=== PATIENT | male | born 1995 | race Caucasian/White ===

== ENCOUNTER 2016-05-28 15:53 | Emergency (ER) | payer MEDICAID, OTHER ==
[~2016-05-28] VITALS: Ht 167.6 cm; Wt 72.0 kg
[2016-05-28 16:12] VITALS: Ht 167.6 cm; Wt 72.0 kg
[2016-05-28] MEDS ORDERED: DIPHTH/TET/ACEL PERTUSS (ADULT) 0.5 ML VIAL IM* ONE (18:00)
--- NOTE | 2016-05-28 18:10 | RADRPT ---
PROCEDURE: XR Foot. CLINICAL INDICATION: Trauma with left great toe laceration. TECHNIQUE: Three views of the left foot are available for review. COMPARISON: None available FINDINGS: There is a comminuted and displaced fracture of the distal first phalanx that extends to the IP join t. There is extensive edema within the first digit and midfoot. There is a tiny osseous fragment a djacent to the medial aspect of the second distal phalanx, likely related to a mildly displaced frac ture. The osseous mineralization is within normal limits. The osseous mineralization is within prince l limits. IMPRESSION: 1. Comminuted and displaced fracture of the distal first phalanx that extends to the IP joint. 2. Likely a mildly displaced fracture arising from the medial base of the distal second phalanx. 3. Extensive edema surrounding the first digit and midfoot. RPTAT: HLBP .Barry Batista MD, Date Time Electronically viewed and signed by .Barry Batista MD, MD on 05/28/2016 18:10 .P/
--- NOTE | 2016-05-28 18:12 | RADRPT ---
PROCEDURE: XR Ankle. CLINICAL INDICATION: Trauma with pain. TECHNIQUE: 4 views of the left ankle were performed. COMPARISON: None available. FINDINGS: A comminuted and displaced fracture of the distal first phalanx is again seen on the AP view. There is no additional acute fracture, dislocation, or other osteoarticular abnormality. The alignment i s normal and the ankle mortise is intact. There is mild edema within the soft tissues adjacent to t he lateral malleolus. No radiopaque foreign body is identified. IMPRESSION: 1. Edema within the soft tissues overlying the lateral malleolus with no underlying acute fracture or dislocation involving the ankle joint. 2. Partially visualized comminuted and displaced fracture of the distal first phalanx. RPTAT: HLBP .Barry Batista MD, Date Time Electronically viewed and signed by .Barry Batista MD, MD on 05/28/2016 18:11 .P/
[2016-05-28] MEDS ORDERED: CEPH-443 PO (18:26)
[2016-05-28] MEDS ORDERED: IBUP-1542 PO (18:26)
[2016-05-28] MEDS ORDERED: BACTDS PO (18:26)
[2016-05-28] MEDS ORDERED: CEFAZOLIN 1 GM INJ IM ONE (18:30)
[2016-05-28 18:46] VITALS: BP 130/75; PULSE 104; RESP 20; TEMP 97.8
--- NOTE | 2016-05-28 19:08 | ERD ---
ER Documentation Chief Complaint Date/Time DATE: 05/28/16 TIME: 19:03 Chief Complaint LAC to L toe nail and swelling after corner of soda machine fell on it. HPI 21-year-old male with no significant past medical history presents the ED with a left foot injury he sustained yesterday. States that he was trying to help his friend move a soda machine and accidentally crushed his left foot. Reports that it was initially painful but denies any current pain. Rates the pain a 2 out of 10. States that he did not come in yesterday because he does not like coming to the hospital. States that he has a laceration to his left great toe. States that he is limping and does not want to put weight on his left foot. Denies any loss of sensation, fever, chills, weakness, numbness or tingling. ROS All systems reviewed and are negative except as per history of present illness. Medications Home Meds Active Scripts Ibuprofen* (Motrin*) 600 Mg Tab, 600 MG PO Q6, #30 TAB Prov:ZAY BENITEZ PA-C 05/28/16 Cephalexin* (Keflex*) 500 Mg Capsule, 500 MG PO QID for 7 Days, CAP Prov:ZAY BENITEZ PA-C 05/28/16 Sulfamethoxazole-Trimethoprim* (Bactrim* DS) 800-160 Mg Tab, 1 TAB PO BID for 7 Days, TAB Prov:ZAY BENITEZ PA-C 05/28/16 PMhx/Soc Medical and Surgical Hx: pt denies Medical Hx, pt denies Surgical Hx Hx Alcohol Use: No Hx Substance Use: No Physical Exam Vitals Vital Signs Date Time Temp Pulse Resp B/P Pulse Ox O2 Delivery O2 Flow Rate FiO2 05/28/16 18:46 97.8 104 20 130/75 99 Room Air 05/28/16 16:12 97.8 107 20 141/79 98 Physical Exam Const: [id number], well-nourished. In no acute distress. Head: Atraumatic, normocephalic Eyes: Normal Conjunctiva without injection ENT: Normal external ear, nose and mouth. Neck: Full range of motion. No meningismus. Resp: Clear to auscultation bilaterally. No wheezing, rhonchi, rales, or crackles. No accessory muscle use. No retractions. Cardio: Regular rate and rhythm, no murmurs Skin: No petechiae or rashes Back: No midline tenderness. No CVA tenderness. Ext: No cyanosis, or edema. Horizontal 3 cm laceration noted at the base of left great toe nail with surrounding ecchymosis. Limited range of motion of the IP, MCP joints of the left foot. Edema noted over the dorsal aspect of patient's left foot with slight erythema. Cap refill less than 2 seconds. Distal pulses intact bilaterally. Neur: Awake and alert. Normal gait and coordination. Muscle strength 5/5. Sensation intact bilaterally. Psych: Normal Mood and Affect Results 24 hrs Current Medications Medications (Trade) Dose Ordered Sig/Katie Route PRN Reason Start Time Stop Time Status Last Admin Dose Admin Diphtheria/ Tetanus/Acell Pertussis (Adacel) 0.5 ml ONCE ONCE IM* 05/28/16 18:00 05/28/16 18:01 DC 05/28/16 18:35 Cefazolin Sodium (Ancef) 1 gm ONCE ONCE IM 05/28/16 18:30 05/28/16 18:31 DC 05/28/16 18:34 Procedures/MDM This is a 21-year-old male with no significant past medical history presents to ED with a left foot injury. Patient is afebrile and nontoxic-appearing. Patient denied wanting any pain medications. A left foot and left ankle x-ray was ordered to further evaluate patient. PROCEDURE: XR Ankle. CLINICAL INDICATION: Trauma with pain. TECHNIQUE: 4 views of the left ankle were performed. COMPARISON: None available. FINDINGS: A comminuted and displaced fracture of the distal first phalanx is again seen on the AP view. There is no additional acute fracture, dislocation, or other osteoarticular abnormality. The alignment is normal and the ankle mortise is intact. There is mild edema within the soft tissues adjacent to the lateral malleolus. No radiopaque foreign body is identified. IMPRESSION: 1. Edema within the soft tissues overlying the lateral malleolus with no underlying acute fracture or dislocation involving the ankle joint. 2. Partially visualized comminuted and displaced fracture of the distal first phalanx. PROCEDURE: XR Foot. CLINICAL INDICATION: Trauma with left great toe laceration. TECHNIQUE: Three views of the left foot are available for review. COMPARISON: None available FINDINGS: There is a comminuted and displaced fracture of the distal first phalanx that extends to the IP joint. There is extensive edema within the first digit and midfoot. There is a tiny osseous fragment adjacent to the medial aspect of the second distal phalanx, likely related to a mildly displaced fracture. The osseous mineralization is within normal limits. The osseous mineralization is within normal limits. IMPRESSION: 1. Comminuted and displaced fracture of the distal first phalanx that extends to the IP joint. 2. Likely a mildly displaced fracture arising from the medial base of the distal second phalanx. 3. Extensive edema surrounding the first digit and midfoot. Patient is placed in a left great toe metal splint with mindy tape to left 2nd toe with a posterior ankle splint. Splint Assessment: Neurovascularly intact pre and post splint placement with good fit. Patient sustained a comminuted and displaced fracture of the distal first phalanx extends the IP joint as well as a mildly displaced fracture arising at the medial base of the distal second phalanx. This is likely a open fracture and patient will be treated with Tdap and Ancef 1 g here in the ED. This case was discussed with my supervising physician, Dr. Gu who also evaluated patient at this time. Since patient's laceration has been more than 24 hours, there is no indication for sutures at this time as the risks of infection outweigh the benefits. Stated that patient can be managed on an outpatient basis with orthopedic physician. The laceration will heal through secondary intention. Nail is likely going to fall off. Patient's extremity symptoms have stabilized while they have been evaluated in the department and are appropriate for outpatient follow up. No evidence of dislocations, compartment syndrome, neurologic injury, vascular injury, open joint, open fracture, tendon laceration , septic arthritis, osteomyelitis, DVT, foreign body, or other emergent conditions. Discharge medications: Ibuprofen, Keflex, Bactrim Follow up with orthopedic physician in 1-2 days. Instructed patient to return to the ED sooner for any worsening symptoms. Patient's questions were answered. Patient understood and agreed with discharge plan. Patient discharged stable. Departure Diagnosis: Primary Impression: Toe fracture, left Encounter type: initial encounter Toe: great toe Fracture type: open Phalanx: proximal Fracture alignment: nondisplaced Qualified Code: S92.415B - Open nondisplaced fracture of proximal phalanx of left great toe, initial encounter Condition: Stable Patient Instructions: Finger and Toe Fractures (Broken Finger or Toe) Referrals: [facility], [facility] YOU HAVE RECEIVED A MEDICAL SCREENING EXAM AND THE RESULTS INDICATE THAT YOU DO NOT HAVE A CONDITION THAT REQUIRES URGENT TREATMENT IN THE EMERGENCY DEPARTMENT. FURTHER EVALUATION AND TREATMENT OF YOUR CONDITION CAN WAIT UNTIL YOU ARE SEEN IN YOUR DOCTORS OFFICE WITHIN THE NEXT 1-2 DAYS. IT IS YOUR RESPONSIBILITY TO MAKE AN APPOINTMENT FOR FOLOW-UP CARE. IF YOU HAVE A PRIMARY DOCTOR --you should call your primary doctor and schedule an appointment IF YOU DO NOT HAVE A PRIMARY DOCTOR YOU CAN CALL OUR PHYSICIAN REFERRAL HOTLINE AT IF YOU CAN NOT AFFORD TO SEE A PHYSICIAN YOU CAN CHOSE FROM THE FOLLOWING [facility] [address] [facility]. [facility] [address] [facility] [facility] [address] [facility] [facility] [address] [facility] [address] [facility]. [facility] [address] [facility]. [facility] YOU HAVE RECEIVED A MEDICAL SCREENING EXAM AND THE RESULTS INDICATE THAT YOU DO NOT HAVE A CONDITION THAT REQUIRES URGENT TREATMENT IN THE EMERGENCY DEPARTMENT. FURTHER EVALUATION AND TREATMENT OF YOUR CONDITION CAN WAIT UNTIL YOU ARE SEEN IN YOUR DOCTORS OFFICE WITHIN THE NEXT 1-2 DAYS. IT IS YOUR RESPONSIBILITY TO MAKE AN APPOINTMENT FOR FOLOW-UP CARE. IF YOU HAVE A PRIMARY DOCTOR --you should call your primary doctor and schedule and appointment IF YOU DO NOT HAVE A PRIMARY DOCTOR YOU CAN CALL OUR PHYSICIAN REFERRAL HOTLINE AT . IF YOU CAN NOT AFFORD TO SEE A PHYSICIAN YOU CAN CHOSE FROM THE FOLLOWING [facility]: [facility] [address] [place] [address] [facility] [address] [place] [address] [facility] [address] [place] [address] [facility] Urgent Care 7 a.m.- 11 p.m. Every Day of the Week NO APPOINTMENT OR AUTHORIZATION NEEDED [facility] Hours: Thu-Thu 9:00 AM - 5:00 PM Additional Instructions: Seguimiento con shweta alejandro en 2-3 white. Regrese a estas instalaciones si no se mejora luc esperbamos o luc rehana jeffersons. ZAY BENITEZ PA-C May 28, 2016 19:08
== END 2016-05-28 18:46 | disposition home or self-care (01) ==
LOC: FTE 15:53
DX: S92.415B Nondisplaced fracture of proximal phalanx of left great toe, initial encounter for open fracture (principal); W23.1XXA Caught, crushed, jammed, or pinched between stationary objects, initial encounter; Y92.9 Unspecified place or not applicable; Z23 Encounter for immunization
CPT/HCPCS: 73610; 73630; 90715; J0690; 90471; 96372